=== PATIENT | male | born 1965 | race Hispanic/Latino ===

== ENCOUNTER 2017-04-13 13:41 | Emergency (ER) | payer OTHER ==
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
== END 2017-04-13 15:20 | disposition home or self-care (01) ==
LOC: ERS 13:41
DX: S61.012A Laceration without foreign body of left thumb without damage to nail, initial encounter (principal); S60.222A Contusion of left hand, initial encounter; W22.8XXA Striking against or struck by other objects, initial encounter

== ENCOUNTER 2017-08-16 12:07 | Emergency (ER) | payer OTHER ==
[2017-08-16] MEDS ORDERED: Ondansetron HCl/PF 4 MG/2 ML Vial ONE (12:19)
[2017-08-16] MEDS ORDERED: Morphine 4 MG/ML VIAL ONE (12:19)
[2017-08-16] MEDS ORDERED: Lidocaine 1% (PF) 30 ML VIAL ONE (13:19)
--- NOTE | 2017-08-16 13:57 | RAD ---
LEFT HAND 3 VIEWS: Date: 08/16/17 PROVIDED CLINICAL HISTORY: Left arm laceration. FINDINGS: Comparison with 04/13/17. There is focal soft tissue lucency present at the radial aspect of the first CMC joint compatible wit h provided clinical history of laceration. Multiple punctate radiodensities are present in the soft t issues in this region. There is no evidence for fracture or other acute osseous abnormality. Alignmen t appears anatomic. Joint spaces appear preserved. IMPRESSION: Findings compatible with provided clinical history of laceration at the radial aspect of the hand wit h associated small radiopaque foreign bodies. POS: [facility]
== END 2017-08-16 15:22 | disposition home or self-care (01) ==
LOC: ERS 12:07
DX: S61.012A Laceration without foreign body of left thumb without damage to nail, initial encounter (principal); W27.0XXA Contact with workbench tool, initial encounter
CPT/HCPCS: 96374; 96375; J2001; J2270; J2405

== ENCOUNTER 2017-08-24 14:18 | Outpatient (CLI) | payer OTHER ==
[2017-08-24 15:28] LABS: #Eosinphils 0.1 thou/uL (0.0-0.7); #Lymphocytes 1.9 thou/uL (1.20-3.40); #Monocytes 0.8 thou/uL (0.11-0.59); #Neutrophils 3.2 thou/uL (1.40-6.50); %Basophils 0.7 % (0.0-1.0); %Eosinophils 2.1 % (0.0-10.0); %Lymphocytes 31.2 % (21.0-51.0); %Monocytes 13.1 % (0.0-10.0); %Neutrophils 52.9 % (42.0-75.0); Mean Corpuscular HGB CONC 34.9 g/dL (32.0-36.0); Mean Corpuscular Hemoglobin 32.1 pg (27.0-31.0); Mean Platelet Volume 7.6 fL (7.4-10.4); Platelet Count 260 thou/uL (130-400); RBC Distribution Width 11.7 % (11.5-14.5); Red Blood Cell (RBC) Count 4.98 mill/uL (4.70-6.10); White Blood Cell (WBC) Count 6.1 thou/uL (4.8-10.8)
== END 2017-08-24 14:19 | disposition home or self-care (01) ==
LOC: LABBT 14:18
PROVIDERS: ATTEND Orthopaedic Surgery Hand Surgery
DX: Z01.812 Encounter for preprocedural laboratory examination (principal); S66.929A Laceration of unspecified muscle, fascia and tendon at wrist and hand level, unspecified hand, initial encounter
CPT/HCPCS: 85025

== ENCOUNTER → 2017-08-25 | Day surgery (SDC) | payer OTHER ==
[2017-08-24 14:23] VITALS: BMI 27.4
[~2017-08-25] MED LIST: Bacitracin Zinc Ointment 30 gm TUBE ONE; Betamet Acet/Betamet Na Ph 30 MG/5 ML VIAL ONE; Bupivacaine PF 0.5% 30 ML VIAL ONE; Clindamycin/D5W 600 mg/50 ml Premix Bag ONE; Dexamethasone 20 MG/5 ML VIAL ONE; Fentanyl 100 MCG/2 ML VIAL ONE; Ketorolac Tromethamine 30 MG/ML VIAL ONE; Lidocaine 1% PF 5 ML VIAL ONE; Midazolam HCl 2 mg/2 ml Vial ONE; Ondansetron HCl/PF 4 MG/2 ML Vial ONE; PROPOFOL 200 MG/20 ML VIAL ONE; Sodium Chloride 0.9% 10 ML ONE; diphenhydrAMINE 50 MG/ML VIAL ONE; ePHEDrine/0.9% NaCl/PF SYRINGE 50 mg/10 ml ONE
--- NOTE | 2017-08-26 14:40 | OP ---
PREOPERATIVE DIAGNOSES: 1. Left thumb wound. 2. Left thumb metacarpal and pressure fracture, 2 cm long, incomplete cavity approximately 2 mm wide and 2 mm deep. 3. Extensor pollicis longus laceration with retraction of the tendon back to the level of the Fadi 's tubercle, zone 3 laceration. 4. Extensor pollicis brevis zone 3 laceration, complete. 5. Branch superficial radial nerve to the webspace and also thumb just before branch point laceratio n complete. POSTOPERATIVE DIAGNOSES: 1. Left thumb wound. 2. Left thumb metacarpal and pressure fracture, 2 cm long, incomplete cavity approximately 2 mm wide and 2 mm deep. 3. Extensor pollicis longus laceration with retraction of the tendon back to the level of the Fadi 's tubercle, zone 3 laceration. 4. Extensor pollicis brevis zone 3 laceration, complete. 5. Branch superficial radial nerve to the webspace and also thumb just before branch point laceratio n complete. PROCEDURE PERFORMED: 1. Debridement of wound: Use the following techniques. a. A cyst excision technique. b. Use of a curette. Tenotomy scissors Camp blade 11 blade and Adson and 3 liters irrigation with antibiotics. c. Minimal gross contamination seen minimal with a small amount of hematoma had been evacuated. d. Level was down to bone. e. Debridement. 2. Fracture of thumb metacarpal shaft. The same technique instrumentation used for debridement, wou nd above. 3. Open treatment thumb metacarpal fracture using a treatment technique listed above, then splinting . 4. Extensor pollicis longus repair with marked retraction of the tendon zone 3 thumb. 5. Extensor pollicis brevis repair, left thumb. 6. Superficial radial nerve repair under magnification. ESTIMATED BLOOD LOSS: 25 mL TOURNIQUET TIME: 74 minutes. FINDINGS: As listed above. INDICATIONS: The patient with laceration and had been called to emergency room had absent thumb, ext ension at either joint distal to the CMC. Postoperative images indicated. Some decreased light touc h in the center of the dorsal thumb webspace. DESCRIPTION OF THE PROCEDURE: After successful general LMA technique by ETELVINA Clemente, the limb was prepped and draped. We did time out, confirmed the site, side, location, and procedure and then exsanguinated the limb, inflated tourniquet 250 mmHg pressure after the prep and drape. We removed all the sutures, injected wound with a 10 mL 0.5% Marcaine and then extended it 2 cm proximal and 2 cm distal. We identified the knee area with impression in the bone had a hematoma. He was evacuated and debridement techniques used as listed above to debride the wound and open frac ture was accomplished that include the transverse laceration had 1 mm circumference of the skin remov ed. Once the hematoma, and skin debridement of the bone, and material associated with open fracture was debrided, we then irrigated with 3 liters normal saline and there was a small spicule that was r emoved and two spots, but there was no contamination. We then completed open treatment of thumb meta carpal fracture with a curette, the fracture had excellent appearance, was incomplete from the sharp instrument only it did not penetrate both cortices. We identified and found the extensive pollicis brevis tendon, extensive pollicis longus was retracted of Fadi tubercle, was identified as well as all the superficial nerve branches which were intact e xcept for one, the one branch to the dorsal webspace and the dorsal ulnar thumb. For this reason, af ter irrigation, we first attacked the tendon and after we secured the bone fracture as listed above, we then attacked the tendon repairs. We used because there is so much tension on the repair in its o wn, but based on where it is in the past and EPL, EPB, we used a modified Alonso core suture with 4- 0 Prolene and then a 6-0 Prolene running suture. This was done the excess positive brevis and longus with no undue tension. The thumb remained hyperextended at this time. Next, we removed a small too unt of hematoma and adventitia around the nerve. Under magnification, we were able to repair the ner ve with four #8 Ethilon sutures. Tourniquet was deflated. Hemostasis was excellent. We then irriga komal one last time with 1 L normal saline, antibiotics inside and closed the wound without a drain, bu t with intact thumb hyperextension like we were hitchhiking. We then allowed the patient to have thi s incision closed in two layers with interrupted 3-0 Monocryl deep dermal and epidermal closure with 4-0 nylon interrupted mattress pattern. Final injection was given to skin. Bulky dressing applied w ith a thumb, splint dressing to hold the thumb had extension at the interphalangeal joint and metacar pophalangeal joint. Tolerated this procedure without complication and was prepared for discharge. A splint was applied.
== END ==
LOC: EEVIPCON → SDC 10:44
PROVIDERS: ATTEND Orthopaedic Surgery Hand Surgery
PROC: 0KQD0ZZ Repair Left Hand Muscle, Open Approach (ICD-10-PCS; principal; 2017-08-25)
PROC: 01N60ZZ Release Radial Nerve, Open Approach (ICD-10-PCS; principal; 2017-08-25)
PROC: 0PSS0ZZ Reposition Left Thumb Phalanx, Open Approach (ICD-10-PCS; principal; 2017-08-25)
PROC: 0LM80ZZ Reattachment of Left Hand Tendon, Open Approach (ICD-10-PCS; principal; 2017-08-25)
DX: S66.222A Laceration of extensor muscle, fascia and tendon of left thumb at wrist and hand level, initial encounter (principal); S64.22XA Injury of radial nerve at wrist and hand level of left arm, initial encounter; S62.512A Displaced fracture of proximal phalanx of left thumb, initial encounter for closed fracture; S61.012A Laceration without foreign body of left thumb without damage to nail, initial encounter; W31.1XXA Contact with metalworking machines, initial encounter; Y92.239 Unspecified place in hospital as the place of occurrence of the external cause; Y99.0 Civilian activity done for income or pay; Z79.2 Long term (current) use of antibiotics
CPT/HCPCS: 96372; A4216; J0702; J1100; J1200; J1885; J2001; J2250; J2405; J2704; J3010; J3490; S0020